=== PATIENT | male | born 1965 | race African-American/Black ===

== ENCOUNTER 2023-02-20 16:03 | Inpatient (IN) | payer OTHER ==
[2023-02-20 17:21] VITALS: BMI 22.7
[2023-02-20] MEDS ORDERED: MAG HYDROX/AL HYDROX/SIMETH 30 ML UNIT-DOSE CUP PO PRN (18:28)
[2023-02-20] MEDS ORDERED: P-EPHED 60MG/TRIPROLIDI 2.5MG TABLET PO PRN (18:28)
[2023-02-20] MEDS ORDERED: IBUPROFEN 400 MG TABLET (FP) PO PRN (18:28)
[2023-02-20] MEDS ORDERED: BENZONATATE 200 MG CAPSULE PO PRN (18:28)
[2023-02-20] MEDS ORDERED: NICOTINE 7 MG/24 HOURS TOPICAL PATCH TD PRN (18:28)
[2023-02-20] MEDS ORDERED: guaiFENesin 600 MG TABLET.ER (FP) PO PRN (18:28)
[2023-02-20] MEDS ORDERED: POLYETHYLENE GLYCOL (HEALTHYLAX) 3350 17 GM PACKET PO PRN (18:28)
[2023-02-20] MEDS ORDERED: LOPERAMIDE HCL 2 MG CAPSULE PO PRN (18:28)
[2023-02-20] MEDS ORDERED: NALOXONE HCL 0.4 MG/ML VIAL IM PRN (18:28)
[2023-02-20] MEDS ORDERED: MAGNESIUM HYDROX 2400MG/30ML ORAL SUSPENSION 30 ML CUP PO PRN (18:28)
[2023-02-20] MEDS ORDERED: NALOXONE HCL (KLOXXADO) 8 MG SPRAY NS PRN (18:28)
[2023-02-20] MEDS ORDERED: IBUPROFEN 600 MG TABLET (FP) PO PRN (18:28)
[2023-02-20] MEDS ORDERED: ACETAMINOPHEN 325 MG TABLET (FP) PO PRN (18:28)
[2023-02-20] MEDS ORDERED: BENZOCAINE/MENTHOL (CHLORASEPTIC ) LOZENGE MM PRN (18:28)
[2023-02-20] MEDS ORDERED: NICOTINE POLACRILEX 2 MG GUM BC PRN (18:28)
[2023-02-20] MEDS: MELATONIN 5 MG TABLETS PO PRN (21:52)
[2023-02-20] MEDS: THIAMINE HCL 100 MG TABLET (FP) PO SCH (21:52)
[2023-02-21] MEDS: NICOTINE 10 MG CARTRIDGE (INHALER) IH PRN (06:49)
[2023-02-21] MEDS: PRENATAL VITAMINS W/ FOLIC ACID TABLET (FP) PO SCH (10:20)
[2023-02-21 11:20] LABS: HEMATOCRIT 33.5 % (35.4-49); HEMOGLOBIN 11.2 GM/dL (11.7-16.9); MCH 31.8 pg (25.7-33.7); MCHC 33.6 g/dl (32.0-35.9); MEAN CELL VOLUME 94.7 fl (80-96); MEAN PLT VOLUME 9.5 fl (7.5-11.1); PLATELET COUNT 207 10^3/uL (134-434); RBC 3.53 M/mm3 (4.00-5.60); RDW 13.9 % (11.9-15.9); WHITE BLOOD COUNT 3.6 K/mm3 (4.0-10.0)
[2023-02-21 11:40] LABS: ALBUMIN 2.8 g/dl (3.4-5.0); CALCIUM 8.3 mg/dL (8.5-10.1)
[2023-02-21 11:41] LABS: BLOOD UREA NITROGEN 6.4 mg/dL (7-18)
[2023-02-21 11:42] LABS: CREATININE 0.6 mg/dL (0.55-1.3)
[2023-02-21 11:44] LABS: BILIRUBIN,TOTAL 0.2 mg/dL (0.2-1); TOT PROT 6.5 g/dl (6.4-8.2)
[2023-02-21] MEDS: DARUNAVIR/COB/EMTRI/TENOF (SYMTUZA) TABLET (NF) PO SCH (21:39)
[2023-02-21] MEDS: THIAMINE HCL 100 MG TABLET (FP) PO SCH (21:40)
[2023-02-22] MEDS: DARUNAVIR/COB/EMTRI/TENOF (SYMTUZA) TABLET (NF) PO SCH (07:02)
[2023-02-22] MEDS: PRENATAL VITAMINS W/ FOLIC ACID TABLET (FP) PO SCH (09:35)
[2023-02-22 10:36] LABS: URINE APPEARANCE CLEAR; URINE BILIRUBIN NEGATIVE (NEGATIVE); URINE COLOR YELLOW; URINE GLUCOSE (UA) NEGATIVE (NEGATIVE); URINE KETONE NEGATIVE (NEGATIVE); URINE LEUK ESTERASE NEGATIVE (NEGATIVE); URINE NITRITE NEGATIVE (NEGATIVE); URINE PROTEIN NEGATIVE (NEGATIVE); URINE UROBILINOGEN 0.2 mg/dL (0.2-1.0)
[2023-02-22] MEDS: FERROUS SO4 325 MG TABLET (FP) PO SCH (13:36)
[2023-02-22] MEDS: hydrOXYzine PAMOATE 25 MG CAPSULE (FP) PO PRN (21:21)
[2023-02-22] MEDS: MELATONIN 5 MG TABLETS PO PRN (21:21)
[2023-02-22] MEDS: THIAMINE HCL 100 MG TABLET (FP) PO SCH (21:21)
[2023-02-23] MEDS: DARUNAVIR/COB/EMTRI/TENOF (SYMTUZA) TABLET (NF) PO SCH (07:09)
[2023-02-23] MEDS: FERROUS SO4 325 MG TABLET (FP) PO SCH (09:22)
[2023-02-23] MEDS: PRENATAL VITAMINS W/ FOLIC ACID TABLET (FP) PO SCH (09:23)
[2023-02-23] MEDS: THIAMINE HCL 100 MG TABLET (FP) PO SCH (21:20)
[2023-02-23] MEDS: MELATONIN 5 MG TABLETS PO PRN (21:20)
[2023-02-24] MEDS: DARUNAVIR/COB/EMTRI/TENOF (SYMTUZA) TABLET (NF) PO SCH (07:16)
[2023-02-24] MEDS: PRENATAL VITAMINS W/ FOLIC ACID TABLET (FP) PO SCH (09:43)
[2023-02-24] MEDS: FERROUS SO4 325 MG TABLET (FP) PO SCH (09:43)
[2023-02-24] MEDS: NICOTINE 10 MG CARTRIDGE (INHALER) IH PRN (10:03)
[2023-02-24] MEDS: THIAMINE HCL 100 MG TABLET (FP) PO SCH (21:23)
[2023-02-24] MEDS: MELATONIN 5 MG TABLETS PO PRN (21:23)
[2023-02-25] MEDS: DARUNAVIR/COB/EMTRI/TENOF (SYMTUZA) TABLET (NF) PO SCH (07:09)
[2023-02-25] MEDS: FERROUS SO4 325 MG TABLET (FP) PO SCH (09:42)
[2023-02-25] MEDS: PRENATAL VITAMINS W/ FOLIC ACID TABLET (FP) PO SCH (09:43)
[2023-02-25] MEDS: DOCUSATE SODIUM 100 MG CAPSULE (FP) PO SCH ×2 (15:00→21:53)
[2023-02-25] MEDS: THIAMINE HCL 100 MG TABLET (FP) PO SCH (21:53)
[2023-02-25] MEDS: hydrOXYzine PAMOATE 25 MG CAPSULE (FP) PO PRN (21:53)
[2023-02-25] MEDS: MELATONIN 5 MG TABLETS PO PRN (21:53)
[2023-02-26] MEDS: hydrOXYzine PAMOATE 25 MG CAPSULE (FP) PO PRN (06:16)
[2023-02-26] MEDS: DOCUSATE SODIUM 100 MG CAPSULE (FP) PO SCH ×3 (06:16→21:15)
[2023-02-26] MEDS: DARUNAVIR/COB/EMTRI/TENOF (SYMTUZA) TABLET (NF) PO SCH (07:22)
[2023-02-26] MEDS: FERROUS SO4 325 MG TABLET (FP) PO SCH (09:35)
[2023-02-26] MEDS: PRENATAL VITAMINS W/ FOLIC ACID TABLET (FP) PO SCH (09:35)
[2023-02-26] MEDS: THIAMINE HCL 100 MG TABLET (FP) PO SCH (21:14)
[2023-02-26] MEDS: MELATONIN 5 MG TABLETS PO PRN (21:15)
[2023-02-27] MEDS: DOCUSATE SODIUM 100 MG CAPSULE (FP) PO SCH ×3 (06:14→21:50)
[2023-02-27] MEDS: DARUNAVIR/COB/EMTRI/TENOF (SYMTUZA) TABLET (NF) PO SCH (07:23)
[2023-02-27] MEDS: FERROUS SO4 325 MG TABLET (FP) PO SCH (09:51)
[2023-02-27] MEDS: PRENATAL VITAMINS W/ FOLIC ACID TABLET (FP) PO SCH (09:51)
[2023-02-27] MEDS: THIAMINE HCL 100 MG TABLET (FP) PO SCH (21:49)
[2023-02-27] MEDS: MELATONIN 5 MG TABLETS PO PRN (21:50)
[2023-02-28] MEDS: DOCUSATE SODIUM 100 MG CAPSULE (FP) PO SCH ×3 (06:14→21:09)
[2023-02-28] MEDS: DARUNAVIR/COB/EMTRI/TENOF (SYMTUZA) TABLET (NF) PO SCH (07:05)
[2023-02-28] MEDS: FERROUS SO4 325 MG TABLET (FP) PO SCH (09:44)
[2023-02-28] MEDS: PRENATAL VITAMINS W/ FOLIC ACID TABLET (FP) PO SCH (09:44)
[2023-02-28] MEDS ORDERED: MULTIVITAMINS (DAILY MVI) TABLET (FP) PO PRN (14:16)
[2023-02-28] MEDS: THIAMINE HCL 100 MG TABLET (FP) PO SCH (21:09)
[2023-02-28] MEDS: MELATONIN 5 MG TABLETS PO PRN (21:09)
[2023-03-01] MEDS: DOCUSATE SODIUM 100 MG CAPSULE (FP) PO SCH ×3 (06:26→21:33)
[2023-03-01] MEDS: NICOTINE 10 MG CARTRIDGE (INHALER) IH PRN (06:43)
[2023-03-01] MEDS: DARUNAVIR/COB/EMTRI/TENOF (SYMTUZA) TABLET (NF) PO SCH (07:39)
[2023-03-01] MEDS: FERROUS SO4 325 MG TABLET (FP) PO SCH (09:53)
[2023-03-01] MEDS ORDERED: MULTIVIT-MINERALS ORAL LIQUID PO SCH (10:00)
[2023-03-01] MEDS: MELATONIN 5 MG TABLETS PO PRN (21:33)
[2023-03-01] MEDS: hydrOXYzine PAMOATE 25 MG CAPSULE (FP) PO PRN (21:33)
[2023-03-01] MEDS: THIAMINE HCL 100 MG TABLET (FP) PO SCH (21:33)
[2023-03-02] MEDS: DOCUSATE SODIUM 100 MG CAPSULE (FP) PO SCH ×3 (06:55→21:30)
[2023-03-02] MEDS: DARUNAVIR/COB/EMTRI/TENOF (SYMTUZA) TABLET (NF) PO SCH (07:19)
[2023-03-02] MEDS: FERROUS SO4 325 MG TABLET (FP) PO SCH (10:20)
[2023-03-02] MEDS: MELATONIN 5 MG TABLETS PO PRN (21:30)
[2023-03-02] MEDS: hydrOXYzine PAMOATE 25 MG CAPSULE (FP) PO PRN (21:30)
[2023-03-02] MEDS: NICOTINE 10 MG CARTRIDGE (INHALER) IH PRN (21:31)
[2023-03-02] MEDS: THIAMINE HCL 100 MG TABLET (FP) PO SCH (21:31)
[2023-03-03] MEDS: DOCUSATE SODIUM 100 MG CAPSULE (FP) PO SCH ×3 (06:06→22:00)
[2023-03-03] MEDS: DARUNAVIR/COB/EMTRI/TENOF (SYMTUZA) TABLET (NF) PO SCH (08:29)
[2023-03-03] MEDS: FERROUS SO4 325 MG TABLET (FP) PO SCH (10:04)
[2023-03-03] MEDS: THIAMINE HCL 100 MG TABLET (FP) PO SCH (22:00)
[2023-03-03] MEDS: MELATONIN 5 MG TABLETS PO PRN (22:00)
[2023-03-04] MEDS: DOCUSATE SODIUM 100 MG CAPSULE (FP) PO SCH ×3 (06:18→21:05)
[2023-03-04] MEDS: DARUNAVIR/COB/EMTRI/TENOF (SYMTUZA) TABLET (NF) PO SCH (07:02)
[2023-03-04] MEDS: FERROUS SO4 325 MG TABLET (FP) PO SCH (10:03)
[2023-03-04] MEDS: THIAMINE HCL 100 MG TABLET (FP) PO SCH (21:04)
[2023-03-04] MEDS: MELATONIN 5 MG TABLETS PO PRN (21:04)
[2023-03-04] MEDS: hydrOXYzine PAMOATE 25 MG CAPSULE (FP) PO PRN (21:04)
[2023-03-05] MEDS: DOCUSATE SODIUM 100 MG CAPSULE (FP) PO SCH ×3 (06:11→21:11)
[2023-03-05] MEDS: FERROUS SO4 325 MG TABLET (FP) PO SCH (07:04)
[2023-03-05] MEDS: DARUNAVIR/COB/EMTRI/TENOF (SYMTUZA) TABLET (NF) PO SCH (07:04)
[2023-03-05] MEDS: COLLOIDAL OATMEAL 1 BAR EACH TP PRN (10:00)
[2023-03-05] MEDS: NICOTINE 10 MG CARTRIDGE (INHALER) IH PRN (11:52)
[2023-03-05] MEDS: THIAMINE HCL 100 MG TABLET (FP) PO SCH (21:10)
[2023-03-05] MEDS: MELATONIN 5 MG TABLETS PO PRN (21:10)
[2023-03-05] MEDS: hydrOXYzine PAMOATE 25 MG CAPSULE (FP) PO PRN (21:11)
[2023-03-06] MEDS: DOCUSATE SODIUM 100 MG CAPSULE (FP) PO SCH ×3 (06:31→21:20)
[2023-03-06] MEDS: FERROUS SO4 325 MG TABLET (FP) PO SCH (07:03)
[2023-03-06] MEDS: DARUNAVIR/COB/EMTRI/TENOF (SYMTUZA) TABLET (NF) PO SCH (08:46)
[2023-03-06] MEDS: hydrOXYzine PAMOATE 25 MG CAPSULE (FP) PO PRN (21:20)
[2023-03-06] MEDS: MELATONIN 5 MG TABLETS PO PRN (21:20)
[2023-03-06] MEDS: THIAMINE HCL 100 MG TABLET (FP) PO SCH (21:20)
[2023-03-07] MEDS: DOCUSATE SODIUM 100 MG CAPSULE (FP) PO SCH ×3 (06:23→21:26)
[2023-03-07] MEDS: DARUNAVIR/COB/EMTRI/TENOF (SYMTUZA) TABLET (NF) PO SCH (07:01)
[2023-03-07] MEDS: FERROUS SO4 325 MG TABLET (FP) PO SCH (07:03)
[2023-03-07] MEDS: hydrOXYzine PAMOATE 25 MG CAPSULE (FP) PO PRN (21:26)
[2023-03-07] MEDS: THIAMINE HCL 100 MG TABLET (FP) PO SCH (21:26)
[2023-03-07] MEDS: MELATONIN 5 MG TABLETS PO PRN (21:26)
[2023-03-08] MEDS: DOCUSATE SODIUM 100 MG CAPSULE (FP) PO SCH ×3 (06:55→21:20)
[2023-03-08] MEDS: FERROUS SO4 325 MG TABLET (FP) PO SCH (07:04)
[2023-03-08] MEDS: DARUNAVIR/COB/EMTRI/TENOF (SYMTUZA) TABLET (NF) PO SCH (07:05)
[2023-03-08] MEDS: NICOTINE 10 MG CARTRIDGE (INHALER) IH PRN (07:08)
[2023-03-08] MEDS: MELATONIN 5 MG TABLETS PO PRN (21:20)
[2023-03-08] MEDS: hydrOXYzine PAMOATE 25 MG CAPSULE (FP) PO PRN (21:20)
[2023-03-08] MEDS: THIAMINE HCL 100 MG TABLET (FP) PO SCH (21:20)
[2023-03-09] MEDS: DOCUSATE SODIUM 100 MG CAPSULE (FP) PO SCH ×3 (06:23→21:11)
[2023-03-09] MEDS: FERROUS SO4 325 MG TABLET (FP) PO SCH (07:04)
[2023-03-09] MEDS: DARUNAVIR/COB/EMTRI/TENOF (SYMTUZA) TABLET (NF) PO SCH (07:04)
[2023-03-09] MEDS: NICOTINE 10 MG CARTRIDGE (INHALER) IH PRN (09:50)
[2023-03-09] MEDS: MELATONIN 5 MG TABLETS PO PRN (21:10)
[2023-03-09] MEDS: THIAMINE HCL 100 MG TABLET (FP) PO SCH (21:10)
[2023-03-09] MEDS: hydrOXYzine PAMOATE 25 MG CAPSULE (FP) PO PRN (21:10)
[2023-03-10] MEDS: NICOTINE 10 MG CARTRIDGE (INHALER) IH PRN (06:26)
[2023-03-10] MEDS: DOCUSATE SODIUM 100 MG CAPSULE (FP) PO SCH ×3 (06:27→21:24)
[2023-03-10] MEDS: FERROUS SO4 325 MG TABLET (FP) PO SCH (07:14)
[2023-03-10] MEDS: DARUNAVIR/COB/EMTRI/TENOF (SYMTUZA) TABLET (NF) PO SCH (07:14)
[2023-03-10] MEDS: hydrOXYzine PAMOATE 25 MG CAPSULE (FP) PO PRN (21:23)
[2023-03-10] MEDS: MELATONIN 5 MG TABLETS PO PRN (21:23)
[2023-03-10] MEDS: THIAMINE HCL 100 MG TABLET (FP) PO SCH (21:23)
[2023-03-11] MEDS: DOCUSATE SODIUM 100 MG CAPSULE (FP) PO SCH ×2 (06:22→14:12)
[2023-03-11] MEDS: FERROUS SO4 325 MG TABLET (FP) PO SCH (07:07)
[2023-03-11] MEDS: DARUNAVIR/COB/EMTRI/TENOF (SYMTUZA) TABLET (NF) PO SCH (07:08)
[2023-03-11] MEDS: hydrOXYzine PAMOATE 25 MG CAPSULE (FP) PO PRN (21:42)
[2023-03-11] MEDS: THIAMINE HCL 100 MG TABLET (FP) PO SCH (21:42)
[2023-03-11] MEDS: MELATONIN 5 MG TABLETS PO PRN (21:43)
[2023-03-11] MEDS: NICOTINE 10 MG CARTRIDGE (INHALER) IH PRN (22:36)
[2023-03-12] MEDS: FERROUS SO4 325 MG TABLET (FP) PO SCH (07:08)
[2023-03-12] MEDS: DARUNAVIR/COB/EMTRI/TENOF (SYMTUZA) TABLET (NF) PO SCH (07:08)
[2023-03-12 11:02] LABS: HEMATOCRIT 32.8 % (35.4-49); HEMOGLOBIN 11.3 GM/dL (11.7-16.9); MCHC 34.5 g/dl (32.0-35.9); PLATELET COUNT 307 10^3/uL (134-434); RBC 3.53 M/mm3 (4.00-5.60); RDW 13.4 % (11.9-15.9)
[2023-03-12 11:10] LABS: INR 1.14 (0.83-1.09); PROTHROMBIN TIME (PATIENT) 13.2 SEC (9.7-13.0)
[2023-03-12 11:21] LABS: CALCIUM 9.2 mg/dL (8.5-10.1)
[2023-03-12 11:22] LABS: ALBUMIN 2.8 g/dl (3.4-5.0); BLOOD UREA NITROGEN 9.7 mg/dL (7-18)
[2023-03-12 11:25] LABS: CREATININE 0.6 mg/dL (0.55-1.3)
[2023-03-12 11:27] LABS: TOT PROT 7.6 g/dl (6.4-8.2)
[2023-03-12] MEDS ORDERED: PENICILLIN G BENZATHINE 2,400,000 UNIT/4 ML PFS IM ONE (14:19)
[2023-03-12] MEDS: TOLNAFTATE 1% CREAM 15 GM TUBE TP SCH (21:42)
[2023-03-12] MEDS: MELATONIN 5 MG TABLETS PO PRN (21:42)
[2023-03-12] MEDS: hydrOXYzine PAMOATE 25 MG CAPSULE (FP) PO PRN (21:42)
[2023-03-12] MEDS: THIAMINE HCL 100 MG TABLET (FP) PO SCH (21:42)
[2023-03-13] MEDS: DARUNAVIR/COB/EMTRI/TENOF (SYMTUZA) TABLET (NF) PO SCH (07:10)
[2023-03-13] MEDS: FERROUS SO4 325 MG TABLET (FP) PO SCH (07:10)
[2023-03-13] MEDS: TOLNAFTATE 1% CREAM 15 GM TUBE TP SCH ×2 (09:53→21:36)
[2023-03-13] MEDS: THIAMINE HCL 100 MG TABLET (FP) PO SCH (21:34)
[2023-03-13] MEDS: hydrOXYzine PAMOATE 25 MG CAPSULE (FP) PO PRN (21:35)
[2023-03-13] MEDS: MELATONIN 5 MG TABLETS PO PRN (21:36)
[2023-03-13] MEDS: CALAMINE 8% TOPICAL LOTION 177 ML BOTTLE TP PRN (21:38)
[2023-03-14] MEDS: FERROUS SO4 325 MG TABLET (FP) PO SCH (07:15)
[2023-03-14] MEDS: DARUNAVIR/COB/EMTRI/TENOF (SYMTUZA) TABLET (NF) PO SCH (07:15)
[2023-03-14] MEDS: TOLNAFTATE 1% CREAM 15 GM TUBE TP SCH ×2 (10:03→21:22)
[2023-03-14] MEDS: hydrOXYzine PAMOATE 25 MG CAPSULE (FP) PO PRN (21:22)
[2023-03-14] MEDS: NICOTINE 10 MG CARTRIDGE (INHALER) IH PRN (21:22)
[2023-03-14] MEDS: THIAMINE HCL 100 MG TABLET (FP) PO SCH (21:22)
[2023-03-14] MEDS: MELATONIN 5 MG TABLETS PO PRN (21:23)
[2023-03-15] MEDS: FERROUS SO4 325 MG TABLET (FP) PO SCH (07:00)
[2023-03-15] MEDS: DARUNAVIR/COB/EMTRI/TENOF (SYMTUZA) TABLET (NF) PO SCH (07:01)
[2023-03-15] MEDS: TOLNAFTATE 1% CREAM 15 GM TUBE TP SCH ×2 (10:10→21:36)
[2023-03-15] MEDS: THIAMINE HCL 100 MG TABLET (FP) PO SCH (21:35)
[2023-03-15] MEDS: MELATONIN 5 MG TABLETS PO PRN (21:35)
[2023-03-15] MEDS: hydrOXYzine PAMOATE 25 MG CAPSULE (FP) PO PRN (21:37)
[2023-03-15] MEDS: NICOTINE 10 MG CARTRIDGE (INHALER) IH PRN (21:38)
[2023-03-16] MEDS: DARUNAVIR/COB/EMTRI/TENOF (SYMTUZA) TABLET (NF) PO SCH (07:14)
[2023-03-16] MEDS: FERROUS SO4 325 MG TABLET (FP) PO SCH (07:14)
[2023-03-16] MEDS: TOLNAFTATE 1% CREAM 15 GM TUBE TP SCH ×2 (09:56→21:37)
[2023-03-16] MEDS: THIAMINE HCL 100 MG TABLET (FP) PO SCH (21:35)
[2023-03-16] MEDS: MELATONIN 5 MG TABLETS PO PRN (21:35)
[2023-03-16] MEDS: hydrOXYzine PAMOATE 25 MG CAPSULE (FP) PO PRN (21:37)
[2023-03-16] MEDS: CALAMINE 8% TOPICAL LOTION 177 ML BOTTLE TP PRN (21:38)
[2023-03-17] MEDS: DARUNAVIR/COB/EMTRI/TENOF (SYMTUZA) TABLET (NF) PO SCH (07:07)
[2023-03-17] MEDS: FERROUS SO4 325 MG TABLET (FP) PO SCH (07:07)
[2023-03-17] MEDS: TOLNAFTATE 1% CREAM 15 GM TUBE TP SCH ×2 (10:37→21:23)
[2023-03-17] MEDS: MELATONIN 5 MG TABLETS PO PRN (21:22)
[2023-03-17] MEDS: hydrOXYzine PAMOATE 25 MG CAPSULE (FP) PO PRN (21:22)
[2023-03-17] MEDS: THIAMINE HCL 100 MG TABLET (FP) PO SCH (21:22)
[2023-03-17] MEDS: NICOTINE 10 MG CARTRIDGE (INHALER) IH PRN (22:39)
[2023-03-18 06:50] VITALS: RESP 16
[2023-03-18] MEDS: FERROUS SO4 325 MG TABLET (FP) PO SCH (07:05)
[2023-03-18] MEDS: DARUNAVIR/COB/EMTRI/TENOF (SYMTUZA) TABLET (NF) PO SCH (07:05)
[2023-03-18] MEDS: TOLNAFTATE 1% CREAM 15 GM TUBE TP SCH ×2 (09:42→21:20)
[2023-03-18] MEDS: MELATONIN 5 MG TABLETS PO PRN (21:20)
[2023-03-18] MEDS: THIAMINE HCL 100 MG TABLET (FP) PO SCH (21:20)
[2023-03-18] MEDS: hydrOXYzine PAMOATE 25 MG CAPSULE (FP) PO PRN (21:20)
[2023-03-18] MEDS: COLLOIDAL OATMEAL 1 BAR EACH TP PRN (21:21)
[2023-03-19] MEDS: FERROUS SO4 325 MG TABLET (FP) PO SCH (07:01)
[2023-03-19] MEDS: DARUNAVIR/COB/EMTRI/TENOF (SYMTUZA) TABLET (NF) PO SCH (07:01)
[2023-03-19] MEDS ORDERED: PENICILLIN G BENZATHINE 2,400,000 UNIT/4 ML PFS IM ONE (10:00)
[2023-03-19] MEDS: TOLNAFTATE 1% CREAM 15 GM TUBE TP SCH ×2 (10:15→21:19)
[2023-03-19] MEDS: THIAMINE HCL 100 MG TABLET (FP) PO SCH (21:18)
[2023-03-19] MEDS: hydrOXYzine PAMOATE 25 MG CAPSULE (FP) PO PRN (21:19)
[2023-03-19] MEDS: MELATONIN 5 MG TABLETS PO PRN (21:19)
[2023-03-20] MEDS: NICOTINE 10 MG CARTRIDGE (INHALER) IH PRN (06:05)
[2023-03-20 06:41] VITALS: BP 108/69; PULSE 87; TEMP 98.2
[2023-03-20] MEDS: DARUNAVIR/COB/EMTRI/TENOF (SYMTUZA) TABLET (NF) PO SCH (07:02)
[2023-03-20] MEDS: FERROUS SO4 325 MG TABLET (FP) PO SCH (07:03)
[2023-03-20] MEDS: TOLNAFTATE 1% CREAM 15 GM TUBE TP SCH (09:09)
[2023-03-26] MEDS ORDERED: PENICILLIN G BENZATHINE 2,400,000 UNIT/4 ML PFS IM ONE (10:00)
== END 2023-03-20 09:17 | disposition home or self-care (01) | DRG 772 ==
LOC: YASAS 16:03 → Y3E 20:34
PROVIDERS: ADMIT Allergy & Immunology; ATTEND Psychiatry & Neurology Pain Medicine
PROC: HZ42ZZZ Group Counseling for Substance Abuse Treatment, Cognitive-Behavioral (ICD-10-PCS; principal; 2023-02-20)
DX: F10.20 Alcohol dependence, uncomplicated (principal); F14.20 Cocaine dependence, uncomplicated; F17.210 Nicotine dependence, cigarettes, uncomplicated; D50.9 Iron deficiency anemia, unspecified; B20 Human immunodeficiency virus [HIV] disease; R76.8 Other specified abnormal immunological findings in serum; R79.89 Other specified abnormal findings of blood chemistry; Z86.19 Personal history of other infectious and parasitic diseases
CPT/HCPCS: 36415; 71046-TC-FY; 80053; 81003; 82140; 85027; 85610; 86593; 86780; C9803-CS; U0003; U0005